=== PATIENT | male | born 1995 | race African-American/Black ===

== ENCOUNTER 2017-09-05 21:17 | Emergency (ER) | payer OTHER ==
[2017-09-05] MEDS ORDERED: Naproxen 500 MG TAB ONE (23:39)
[2017-09-05] MEDS ORDERED: Benzonatate 100 MG CAP ONE (23:39)
[2017-09-05] MEDS ORDERED: AMOXicillin 250 MG CAP ONE (23:39)
[2017-09-05] MEDS ORDERED: HYDROcodone/Acetaminophen 10/325 mg Tablet ONE (23:39)
== END 2017-09-05 23:45 | disposition home or self-care (01) ==
LOC: MADERS 21:17
DX: J20.9 Acute bronchitis, unspecified (principal); Z87.891 Personal history of nicotine dependence
CPT/HCPCS: 99283

== ENCOUNTER 2017-10-03 22:38 | Emergency (ER) | payer OTHER ==
[2017-10-03] MEDS ORDERED: Ondansetron ODT 4 MG TAB ONE (23:12)
[2017-10-03] MEDS ORDERED: Ketorolac Tromethamine 60 MG/2 ML VIAL ONE (23:18)
[2017-10-03] MEDS ORDERED: diphenhydrAMINE 25 MG CAP ONE (23:18)
[2017-10-03] MEDS ORDERED: HYDROcodone/Acetaminophen 5/325 mg Tablet ONE (23:18)
== END 2017-10-03 23:44 | disposition home or self-care (01) ==
LOC: MADERS 22:38
DX: B34.9 Viral infection, unspecified (principal); F17.210 Nicotine dependence, cigarettes, uncomplicated
CPT/HCPCS: 96372; J1885; Q0162

== ENCOUNTER 2018-03-04 10:34 | Emergency (ER) | payer OTHER | END 2018-03-04 12:15 | disposition home or self-care (01) | LOC: MADERS 10:34 | DX: M54.5 Low back pain (principal); M54.6 Pain in thoracic spine; F17.210 Nicotine dependence, cigarettes, uncomplicated; X50.0XXA Overexertion from strenuous movement or load, initial encounter; Y92.89 Other specified places as the place of occurrence of the external cause | CPT/HCPCS: 99283 ==